=== PATIENT | male | born 1950 | race Caucasian/White ===

== ENCOUNTER 2017-05-14 10:09 | Day surgery (SDC) | payer OTHER ==
[2017-05-14] MEDS ORDERED: MIDAZOLAM 2 MG/2 ML VIAL IVP ONE (10:12)
[2017-05-14] MEDS ORDERED: ETOMIDATE 20 MG/10 ML VIAL IVP ONE (10:12)
[2017-05-14] MEDS ORDERED: fentaNYL 100 MCG/2 ML INJ IVP ONE (10:12)
[2017-05-14] MEDS ORDERED: NS 500 ML IV ONE (10:12)
[2017-05-14] MEDS ORDERED: BENZOCAINE UNIT DOSE SPRAY HURRICAINE MM ONE (10:12)
[2017-05-14] MEDS ORDERED: PROPOFOL 200 MG/20 ML VIAL IVP ONE (10:12)
[2017-05-14] MEDS ORDERED: APIXABAN 5 MG TAB PO ONE (10:30)
--- NOTE | 2017-05-14 10:30 | CPEKG ---
Heart Rate: 66 RR Interval: 909 QRSD Interval: 96 QT Interval: 434 QTC Interval: 455 QRS [place]: 89 T Wave [place]: 36 EKG Severity - ABNORMAL ECG - EKG Impression: ATRIAL FIBRILLATION, V-RATE 56-74 EKG Impression: BORDERLINE RIGHT AXIS DEVIATION Electronically Signed By: Roger Orlando 14-May-2017 16:37:23
[2017-05-14] MEDS ORDERED: ATROPINE SULFATE 1 MG/10 ML SYR ONE (10:34)
[2017-05-14 10:49] LABS: INR 1.04 (0.83-1.16); PROTIME(PATIENT) 13.5 SEC (12.0-15.0)
[2017-05-14 10:50] LABS: APTT 28.2 SEC (23.0-38.0)
[2017-05-14 10:55] LABS: ANION GAP 8 mEq/L (8-16); CALCIUM 9.2 mg/dL (8.5-10.4); CARBON DIOXIDE 26 mEq/l (22-31); CHLORIDE 108 mEq/L (97-110); GLOMERULAR FILTRATION RATE > 60; GLUCOSE 92 mg/dL (70-100); POTASSIUM 4.2 mEq/L (3.5-5.2); SODIUM 142 mEq/L (134-144)
[2017-05-14] MEDS ORDERED: fentaNYL 100 MCG/2 ML INJ ONE (12:12)
[2017-05-14] MEDS ORDERED: MIDAZOLAM 2 MG/2 ML VIAL ONE (12:17)
--- NOTE | 2017-05-14 12:39 | CPEKG ---
Heart Rate: 54 RR Interval: 1111 P-R Interval: 188 QRSD Interval: 102 QT Interval: 468 QTC Interval: 444 P [place]: 5 QRS [place]: 82 T Wave [place]: 42 EKG Severity - OTHERWISE NORMAL ECG - EKG Impression: SINUS RHYTHM EKG Impression: ATRIAL PREMATURE COMPLEX EKG Impression: BORDERLINE RIGHT AXIS DEVIATION Electronically Signed By: Roger Orlando 14-May-2017 16:37:02
--- NOTE | 2017-05-15 04:12 | CPIP ---
[f rep st] INVASIVE CARDIAC PROCEDURE DATE OF PROCEDURE: 05/14/2017 PROCEDURE PERFORMED: Transesophageal echocardiographic-guided cardioversion. INDICATION FOR THE PROCEDURE/APPROPRIATE USE CRITERIA: This patient has symptomatic paroxysmal, now persistent atrial fibrillation. I was asked to see the patient in consultation by HALEY Johnson for a JESSY-guided cardioversion to try to obtain normal sinus rhythm. PROCEDURE IN DETAIL: After informed consent was obtained, n.p.o. status was confirmed, the patient underwent a transesophageal echocardiogram, which was negative for left atrial thrombus. A pulse si gnal within the left atrial appendage showed a signal that was greater than 40, and there was no baljinder dence of spontaneous echo contrast in the left atrium on JESSY. There was no evidence of an intra-atr ial or intracardiac clot. A bubble study was also negative for hfhem-[id number] shunting. After adequate conscious sedation had been achieved, the patient underwent elective DC cardioversion with 300 joules. Followed by 360, and then a third 360-joule biphasic countershock with subsequent return of his rhythm to normal sinus at a rate of 66. FINAL IMPRESSION: Successful, but difficult elective direct current cardioversion for indication of paroxysmal and sustained atrial fibrillation. The patient will need to be on anticoagulation with a novel oral anticoagulation agent for at least 30 days following cardioversion and should follow ut jason Mishra to discuss options of medical treatment, including antiarrhythmic therapy versus an atria l fibrillation ablation. Of note is that the patient has a history of hypothyroidism and also has an oropharynx which is fair ly small and may be a risk factor for sleep apnea. If the patient has not been screened or diagnose d with sleep apnea, he should be screened for that diagnosis, as it is frequently seen in patients w ith paroxysmal atrial fibrillation, even though his overall body habitus would not suggest a signifi cant risk for obstructive sleep apnea. /[id number]/MODL
== END 2017-05-14 15:00 | disposition home or self-care (01) ==
LOC: FCATH 10:09
PROVIDERS: ATTEND Internal Medicine Cardiovascular Disease
PROC: B245ZZ4 Ultrasonography of Left Heart, Transesophageal (ICD-10-PCS; principal; 2017-05-14)
PROC: 5A2204Z Restoration of Cardiac Rhythm, Single (ICD-10-PCS; principal; 2017-05-14)
DX: I48.1 Persistent atrial fibrillation (principal)
CPT/HCPCS: J0461; J2250; J3010

== ENCOUNTER 2017-05-14 23:51 | Emergency (ER) | payer OTHER ==
--- NOTE | 2017-05-14 23:54 | EDPHY ---
H & P Time Seen by Provider: 05/14/17 23:53 HPI/ROS: 66-year-old male presents to the emergency department today with his after having a reaction to adhesive pads placed on him earlier today when he underwent cardioversion for atrial fibrillation. The area over the pads were is red and itchy. He can't sleep due to the irritation. He tried a prescription steroid cream he had at home without significant relief. He also tried 20 mg of Jenna within the last couple of hours. The rash is very localized to where the pads were placed and is not spreading. He denies having any swelling in his throat, difficulty swallowing, shortness of breath, or any other concerns. Past Medical/Surgical History: PMH: includes atrial fibrillation, hypothyroidism Procedure: Electrical cardioversion 05/14/17 Smoking Status: Never smoked Physical Exam: General: Alert and oriented x3, in mild discomfort Skin: There are two very well-circumscribed areas of erythema coinciding with the cardioversion pads that were placed earlier in the day. One anterior right chest wall and one posteriorly on left. No vesicles or bullae. No open wounds. No other rashes. HEENT: Normocephalic, atraumatic, pupils equally round reactive to light and accommodation, extraocular movements intact, conjunctiva clear, oropharynx clear without erythema or swelling. Uvula midline Neck: Supple Heart: Regular rate and rhythm Lungs: Clear to auscultation bilaterally Extremities: No edema Constitutional: Initial Vital Signs Temperature (C) 97.3 F 05/14/17 23:58 Heart Rate 61 05/14/17 23:58 Respiratory Rate 18 05/14/17 23:58 Blood Pressure 122/79 H 05/14/17 23:58 O2 Sat (%) 92 05/14/17 23:58 O2 Delivery Mode Room Air Allergies/Adverse Reactions: No Known Allergies Allergy (Unverified 05/14/17 23:58) Home Medications: Medication Instructions Recorded Eliquis 5 mg 05/14/17 Naltrexone HCl 4.5 mg 05/14/17 Westhroid 113.75 mg 05/14/17 Medical Decision Making ED Course/Re-evaluation: The patient was seen and examined. Vital signs reviewed. Prior records reviewed. He was given ibuprofen as an anti-inflammatory and pain reliever but only 200mg due to the fact that he is on Eliquis. He was given an ice pack for comfort. Lidocaine 2% jelly was placed in a thin layer over the area of irritation. He may continue his steroid cream that he was prescribed previously for another issue, and he may want to consider other over the counter measures such as calamine lotion or Benadryl cream. If symptoms persist he was advised to take oral Benadryl and Pepcid. If symptoms worsen ( e.g. if he starts having any discomfort in his throat, shortness of breath, etc. ) he should come back to the emergency room immediately. Differential Diagnosis: includes but not limited to contact dermatitis, adhesive allergy - Data Points Medications Given: Discontinued Medications Ibuprofen (Motrin) 200 mg PO ONCE ONE Stop: 05/15/17 00:03 Last Admin: 05/15/17 00:11 Dose: 200 mg Lidocaine (Lidocaine 2% Jelly) 1 gordon TP EDNOW ONE Stop: 05/15/17 00:29 Last Admin: 05/15/17 00:20 Dose: 1 gordon Departure - Departure Disposition: Home, Routine, Self-Care Clinical Impression: Contact dermatitis Qualifiers: Contact dermatitis trigger: adhesive Condition: Good Instructions: Contact Dermatitis (ED) Additional Instructions: Continue cool compresses. May continue thin layer of your steroid cream 2-3 times a day. You may use the Lidocaine jelly (2%) every 1-2 hours as needed. Only use a very thin layer over the area affected. Try [id number] topical "anti-itch" medications such as calamine lotion, Benadryl cream or ask the pharmacist for other suggestions. Consider oral Benadryl and Pepcid if symptoms persist. Return to the ER if symptoms worsen (rash spreads, throat swelling, shortness of breath, etc.) Make a note of this reaction and notify your providers at future visits. Referrals: Patient,NotPresent [Primary Care Provider] - As per Instructions
[2017-05-15 00:01] VITALS: BP 122/79; PULSE 61; RESP 18; TEMP 97.3; O2SAT 92
[2017-05-15] MEDS ORDERED: IBUPROFEN 200 MG TAB PO ONE (00:02)
[2017-05-15] MEDS ORDERED: LIDOCAINE 2% JELLY 5 ML TUBE ONE ×2 (00:06→00:11)
[2017-05-15] MEDS ORDERED: LIDOCAINE 2% JELLY 5 ML TUBE TP ONE (00:28)
== END 2017-05-15 00:27 | disposition home or self-care (01) ==
LOC: CED 23:51
DX: L23.1 Allergic contact dermatitis due to adhesives (principal); Z79.01 Long term (current) use of anticoagulants

== ENCOUNTER 2017-07-09 10:54 | Day surgery (SDC) | payer OTHER ==
[2017-07-09] MEDS ORDERED: BENZOCAINE UNIT DOSE SPRAY HURRICAINE MM ONE (11:04)
[2017-07-09] MEDS ORDERED: MIDAZOLAM 2 MG/2 ML VIAL IVP ONE (11:04)
[2017-07-09] MEDS ORDERED: PROPOFOL 200 MG/20 ML VIAL IVP ONE (11:04)
[2017-07-09] MEDS ORDERED: NS 500 ML IV ONE (11:04)
[2017-07-09] MEDS ORDERED: fentaNYL 100 MCG/2 ML INJ IVP ONE (11:04)
[2017-07-09] MEDS ORDERED: ATROPINE SULFATE 1 MG/10 ML SYR IVP ONE (11:04)
--- NOTE | 2017-07-09 11:21 | CPEKG ---
Heart Rate: 69 RR Interval: 870 QRSD Interval: 100 QT Interval: 408 QTC Interval: 437 QRS [place]: 91 T Wave [place]: 53 EKG Severity - ABNORMAL ECG - EKG Impression: ATRIAL FIBRILLATION, V-RATE 57-63 EKG Impression: RIGHT AXIS DEVIATION Electronically Signed By: Go Hahn 09-Jul-2017 11:48:30
[2017-07-09 11:54] LABS: APTT 31.4 SEC (23.0-38.0); INR 1.28 (0.83-1.16)
--- NOTE | 2017-07-09 11:57 | PDANEPAE ---
ANE History of Present Illness 66 yo for JESSY/CV ANE Past Medical History - Cardiovascular History Hx Hypertension: No Hx Arrhythmias: Yes Hx Chest Pain: No Hx Coronary Artery / Peripheral Vascular Disease: No Hx CHF / Valvular Disease: No Hx Palpitations: No - Pulmonary History Hx COPD: No Hx Asthma/Reactive Airway Disease: No Hx Recent Upper Respiratory Infection: No Hx Oxygen in Use at Home: No Hx Sleep Apnea: No - Endocrine History Hx Diabetes: No Hypothyroid: Yes Hyperthyroid: Yes Endocrine History Comment: H/O Hasimoto's ANE Review of Systems - Exercise capacity METS (RN): 4 METS ANE Patient History - Allergies Allergies/Adverse Reactions: No Known Allergies Allergy (Unverified 05/14/17 23:58) - Home Medications Home medications: home medication list seen and reviewed Home Medications: Eliquis 5 mg 05/14/17 [Last Taken 07/09/17 08:00] Naltrexone HCl 4.5 mg 05/14/17 [Last Taken 07/09/17 08:00] Westhroid 113.75 mg 05/14/17 [Last Taken 07/09/17 07:00] Cardizem 07/09/17 [Last Taken 07/09/17 08:00] Rythmol Sr 07/09/17 [Last Taken 07/09/17 08:00] - Anes Hx Anes Hx: no prior problems - Smoking Hx Smoking Status: Never smoked ANE Labs/Vital Signs - Labs Result Diagrams: 07/09/17 11:40 - Vital Signs Height: 6 ft 3 in Weight: 84.4 kg ANE Physical Exam - Airway Neck exam: FROM Mallampati Score: Class 2 Mouth exam: normal dental/mouth exam - Pulmonary Pulmonary: no respiratory distress - Cardiovascular Cardiovascular: regular rate and rhythym - ASA Status ASA Status: II ANE Anesthesia Plan Anesthesia Plan: MAC (ivga)
[2017-07-09 12:01] LABS: ANION GAP 9 mEq/L (8-16); CALCIUM 9.3 mg/dL (8.5-10.4); CARBON DIOXIDE 26 mEq/l (22-31); CHLORIDE 104 mEq/L (97-110); GLOMERULAR FILTRATION RATE > 60; GLUCOSE 89 mg/dL (70-100); MAGNESIUM 1.7 mg/dL (1.6-2.3); POTASSIUM 4.2 mEq/L (3.5-5.2); SODIUM 139 mEq/L (134-144)
--- NOTE | 2017-07-09 12:06 | PDHPUP ---
History & Physical Update H&P update statement: This history and physical update is based on an assessment of the patient which was completed after admission or registration (within 24 hours), but prior to the surgery/procedure. H&P update: H&P reviewed & patient examined, no change in patient's condition since H&P completed
--- NOTE | 2017-07-09 12:11 | PDTEE1 ---
JESSY Cardioversion Procedure Procedure: Electrical Cardioversion Indications: Atrial Fibrillation Consent: Signed and in Chart Anticoagulation: Eliquis Procedural Details: Pads were placed in anterior-posterior position. JESSY probe was advanced and standard images obtained. There is no evidence of left atrial or left atrial appendage thrombus. Synchronized cardioversion attempt #1: 200J Results: Normal sinus rhythm Conclusions: Successful Cardioversion (JESSY WAS NOT DONE SINCE PATIENT HAS NOT MISSED A SINGLE DOSE OF ELIQUIS IN 1 MONTH)
--- NOTE | 2017-07-09 12:21 | CPEKG ---
Heart Rate: 44 RR Interval: 1364 P-R Interval: 248 QRSD Interval: 104 QT Interval: 472 QTC Interval: 404 P [place]: 36 QRS [place]: 88 T Wave [place]: 46 EKG Severity - ABNORMAL ECG - EKG Impression: SINUS BRADYCARDIA EKG Impression: FIRST DEGREE AV BLOCK EKG Impression: BORDERLINE RIGHT AXIS DEVIATION Electronically Signed By: Go Hahn 09-Jul-2017 14:08:42
[2017-07-09] MEDS ORDERED: LIDOCAINE 4% 15 GM CREAM TP ONE (13:30)
--- NOTE | 2017-07-09 13:38 | POSTANESTH ---
Post Anesthetic Evaluation Cardiovascular Status: Normal, Stable Respiratory Status: Normal, Stable Level of Consciousness/Mental Status: Can Participate in Eval Pain Control: Adequate, Prn Tx Ordered Nausea/Vomiting Control: Adequate, Prn Tx Ordered Complications Possibly Related to Anesthesia: None Noted
== END 2017-07-09 13:11 | disposition home or self-care (01) ==
LOC: FCATH 10:54
PROVIDERS: ATTEND Internal Medicine Cardiovascular Disease
PROC: 5A2204Z Restoration of Cardiac Rhythm, Single (ICD-10-PCS; principal; 2017-07-09)
DX: I48.1 Persistent atrial fibrillation (principal); E06.3 Autoimmune thyroiditis; Z79.01 Long term (current) use of anticoagulants
CPT/HCPCS: J2704

== ENCOUNTER 2017-07-24 09:30 | Day surgery (SDC) | payer OTHER ==
[2017-07-24] MEDS ORDERED: NS 500 ML IV ONE (09:35)
[2017-07-24] MEDS ORDERED: fentaNYL 100 MCG/2 ML INJ IVP ONE (09:35)
[2017-07-24] MEDS ORDERED: MIDAZOLAM 2 MG/2 ML VIAL IVP ONE (09:35)
[2017-07-24] MEDS ORDERED: ATROPINE SULFATE 1 MG/10 ML SYR IVP ONE (09:35)
--- NOTE | 2017-07-24 09:55 | CPEKG ---
Heart Rate: 55 RR Interval: 1091 QRSD Interval: 114 QT Interval: 440 QTC Interval: 421 QRS [place]: 86 T Wave [place]: 47 EKG Severity - ABNORMAL ECG - EKG Impression: ATRIAL FIBRILLATION EKG Impression: INCOMPLETE RIGHT BUNDLE BRANCH BLOCK Electronically Signed By: Brian Mishra 24-Jul-2017 10:17:56
[2017-07-24 10:24] LABS: APTT 32.1 SEC (23.0-38.0)
[2017-07-24 10:27] LABS: ANION GAP 9 mEq/L (8-16); CALCIUM 9.3 mg/dL (8.5-10.4); CARBON DIOXIDE 25 mEq/l (22-31); CHLORIDE 104 mEq/L (97-110); CREATININE 1.1 mg/dL (0.7-1.3); GLOMERULAR FILTRATION RATE > 60; GLUCOSE 87 mg/dL (70-100); POTASSIUM 4.3 mEq/L (3.5-5.2); SODIUM 138 mEq/L (134-144)
--- NOTE | 2017-07-24 10:27 | PDANEPAE ---
ANE History of Present Illness here for CV ANE Past Medical History - Cardiovascular History Hx Hypertension: No Hx Arrhythmias: Yes Hx Chest Pain: No Hx Coronary Artery / Peripheral Vascular Disease: No Hx CHF / Valvular Disease: No Hx Palpitations: No - Pulmonary History Hx COPD: No Hx Asthma/Reactive Airway Disease: No Hx Recent Upper Respiratory Infection: No Hx Oxygen in Use at Home: No Hx Sleep Apnea: No - Endocrine History Hx Diabetes: No Endocrine History Comment: H/O Hasimoto's - Renal History Hx Renal Disorders: No - Liver History Hx Hepatic Disorders: No - Neurological & Psychiatric Hx Hx Neurological and Psychiatric Disorders: No - Cancer History Hx Cancer: No - Surgical History Prior Surgeries: appy cataract ANE Review of Systems Review of systems is: negative Review of Systems: - Exercise capacity Exercise capacity: >=4 METS ANE Patient History - Allergies Allergies/Adverse Reactions: No Known Allergies Allergy (Unverified 05/14/17 23:58) - Home Medications Home medications: home medication list seen and reviewed Home Medications: Eliquis 5 mg 05/14/17 [Last Taken 07/09/17 08:00] Naltrexone HCl 4.5 mg 05/14/17 [Last Taken 07/09/17 08:00] Westhroid 113.75 mg 05/14/17 [Last Taken 07/09/17 07:00] Cardizem 07/09/17 [Last Taken 07/09/17 08:00] Rythmol Sr 07/09/17 [Last Taken 07/09/17 08:00] - Anes Hx Anes Hx: no prior problems - Smoking Hx Smoking Status: Never smoked ANE Labs/Vital Signs - Labs Result Diagrams: 07/24/17 10:04 ANE Physical Exam - Airway Neck exam: FROM Mallampati Score: Class 1 - Pulmonary Pulmonary: no respiratory distress - Cardiovascular Cardiovascular: regular rate and rhythym, irregularly irregular - ASA Status ASA Status: II ANE Anesthesia Plan Anesthesia Plan: GA with mask
[2017-07-24] MEDS ORDERED: PROPOFOL 200 MG/20 ML VIAL ONE (10:29)
[2017-07-24 10:31] LABS: INR 1.29 (0.83-1.16); PROTIME(PATIENT) 16.1 SEC (12.0-15.0)
--- NOTE | 2017-07-24 10:48 | PDTEE1 ---
JESSY Cardioversion Procedure Procedure: Electrical Cardioversion Indications: Atrial Fibrillation Consent: Signed and in Chart Anticoagulation: Eliquis (no JESSY as pt claims complte compliance with eloquis "for months") Procedural Details: Pads were placed in anterior-posterior position. JESSY probe was advanced and standard images obtained. There is no evidence of left atrial or left atrial appendage thrombus. Synchronized cardioversion attempt #1: 200J Results: Normal sinus rhythm Conclusions: Successful Cardioversion
--- NOTE | 2017-07-24 11:25 | CPEKG ---
Heart Rate: 48 RR Interval: 1250 P-R Interval: 268 QRSD Interval: 108 QT Interval: 460 QTC Interval: 411 P [place]: 64 QRS [place]: 86 T Wave [place]: 53 EKG Severity - ABNORMAL ECG - EKG Impression: SINUS BRADYCARDIA EKG Impression: FIRST DEGREE AV BLOCK EKG Impression: PROBABLE LEFT ATRIAL ABNORMALITY EKG Impression: INCOMPLETE RIGHT BUNDLE BRANCH BLOCK Electronically Signed By: Brian Mishra 24-Jul-2017 13:15:50
== END 2017-07-24 11:45 | disposition home or self-care (01) ==
LOC: FCATH 09:30
PROVIDERS: ATTEND Internal Medicine Cardiovascular Disease
PROC: 5A2204Z Restoration of Cardiac Rhythm, Single (ICD-10-PCS; principal; 2017-07-24)
DX: I48.1 Persistent atrial fibrillation (principal); E03.9 Hypothyroidism, unspecified; Z79.01 Long term (current) use of anticoagulants
CPT/HCPCS: J2704